=== PATIENT | female | born 1955 | race Caucasian/White ===

== ENCOUNTER 2021-04-10 02:35 | Inpatient (IN) | payer MEDICARE, OTHER ==
[~2021-04-10] VITALS: Ht 170.2 cm; Wt 39.8 kg
[2021-04-10] MEDS ORDERED: LEVOTHYROXINE25 MC1 (03:05)
[2021-04-10] MEDS ORDERED: SERTRALINE HCL1 GM (03:07)
[2021-04-10] MEDS ORDERED: DEPAKOTE125 MG (03:07)
[2021-04-10] MEDS ORDERED: ANORO ELLIPTA1 EACH INH (03:09)
[2021-04-10] MEDS ORDERED: HYDROXYZINE PA100 MG PO (03:09)
[2021-04-10] MEDS ORDERED: SUMATRIPTAN SUC50 MG PO (03:11)
[2021-04-10] MEDS ORDERED: ABILIFY20 MG PO (03:12)
--- NOTE | 2021-04-10 07:10 | NUR ---
PT ARRIVED TO CCU AROUND 0610 AWAKE AND ALERT ON 10L OXYMASK WITH AT SIDE. PT ASSISTED OVER ONTO THE BED PT STATED SHE WAS TO WEAK TO MOVE OVER ON HER OWN. PT MOVED OVER, VITALS TAKEN AT THIS TIME. PT STATED SHE WAS FEELING WARM, AXILLARY TEMP NOTED TO BE 100.0. HR IN THE 130'S. DR. PÉREZ IN TO ASSESS PT AT THIS TIME. VERBAL ORDERS GIVEN TO ADMINISTER 5MG LOPRESSOR OVER 2 MINUTES. LOPRESSOR ADMINISTERED AT 0624. PT VITALS THEN RETAKEN. ABG DRAWN BY DR. PÉREZ AT THIS TIME. ORDERED IVF AND IV ABX STARTED AT THIS TIME AT ORDERED RATES. PT REPORTS NO FURTHER NEEDS AT THIS TIME AND WAS PROVIDED WITH ICE CHIPS FOR COMFORT. RT NOW IN ROOM ASSISTING IN PLACING BIPAP ON PT. WILL CONTINUE PLAN OF CARE. AT BEDSIDE, RT IN ROOM, IVF INFUSING ORDERED, PT BEING PLACED ON BIPAP. WILL CONTINUE PLAN OF CARE AND GIVE REPORT TO THE DAYSHIFT RNS
--- NOTE | 2021-04-10 08:56 | NUR ---
pt not able to swallow tylenol, but is able to take 325 ASA pill. pt takes a few sips of water. placed on oxymask at 15 L flow when off bipap, sats remain 85-89% with this support. pt then back on bipap. total time off bipap less then 10 minutes. pt is alert and oriented x4, cooperative. she denies chest pain, but reports discomfort with breathing effort. pt denies nausea at this time.
--- NOTE | 2021-04-10 15:11 | NUR ---
1200- pt intubated 21 @ teeth 7.0 Ett. PT EET SECURED WITH BITE BOLOCK IN PLACE CENTER OF THE MOUTH, SUCTION IN LINE . SUCTIONED PATIENT NO SECRETIONS. PT BASELINE OXYGEN LEVEL LOW WELL LOW BP AND , HAVING A HARD TIEM GETTING SATURATION READINGS ON THE PATIENT. 1350 INCREASED PEEP USING LOW PEEP SCALED TO 18 TO OPTIMIZE SATURATIONS , PT IS UNSTABLE. DOCTOR AT WORKING ON BLOOD PRESSURE. PT GETTING MORE SEDATION ENDTIDAL READING 35 AT THIS TIME. PLAT PRESSURE IS 29 WANT TO KEEP BELOW 30 FOR PROTECTIVE LUNG STRATAGY. 1400 DOCTOR WOULD LIKE AN ABG HOWEVER PALPATION OF PULSE BILATERALLY IS SPOTTY. ABG OBTAINED BY DR PÉREZ FEMORALLY AFTER UNSUCESSFUL AFTER ATTEMPS BOTH RADIAL AND BRACHIAL ARTERY. 1415 DROPPED PEEP LEVEL TO 16 , PLAUTEUA PRESURE WAS OVER 30 NOW AT 28. THIS CHANGE WAS SATIFACTORY TO THE DOCTOR.
--- NOTE | 2021-04-10 17:35 | NUR ---
1140 - DECISION MADE BY TO INTUBATE PT. 1200 - DEEP PARKINSON FROM RT, , KIZZY RN, JORGE RN AT BEDSIDE. 30 MG ATOMADATE AND 120 MG SUCCS GIVEN TO INTUBATE. SIZE 7 TUBE PLACED 21 AT THE TEETH. 1210 - X-RAY DONE TO VERIFY TUBE PLACEMENT 1215 - 1 MG PHENELEPHRINE GIVEN DUE TO LOW BP OF 109/82, PROPOFOL DRIP STARTED AT 5 MCG/KG/MIN. PHENELPH DRIP STARTED AT 45 MCG/MIN 1217 - PLACED A TRIPLE LUMIN CENTRAL LINE DUE TO POOR IV ACCESS. 1225 - MERI NEVAREZ ATTEMPTED AND FAILED TO PLACE AN ART LINE. 1225 - PHENELEPHRINE DRIP TO 50 MCG/MIN, PROPOFOL INCREASE TO 10 MCG/KG/MIN 1240 - TEMP PROBE MONTGOMERY REPLACED A REGULAR MONTGOMERY CATH. PT CORE TEMP FOUND TO BE 95.4. GYAMAR HEATING PAD APPLIED TO PT. ORDERS CORE TEMP GOAL TO 100.4. 1300 - PHENELEPHRINE TITRATED TO 45 MCG/MIN 1307 - PHENELEP TO 50 MCG/MIN, PEEP TO 10 1320 - PHENELEPH TO 60 MCG/MIN 1320 - LR BOLUS STARTED 1000ML, AND 100 MG IV SOLUCORTEF IV GIVEN. 1330 - PHENELEPH TO 70 MCG/MIN 1335 - PHENELEPHRINE DRIP INCREASED TO 100 MCG/MIN 1337 - PEEP INCREASED TO 18 1339 - PHENELEPHINRE TITRATED TO 150 MCG/MIN 1340 - NOREPI STARTED AT 10 MCG/MIN 1343 - NOREPI UP TO 15 MCG/MIN, PEHELEPHRINE DECREASED TO 125 MCG/MIN 1345 - PHENELPH DECREASED TO 100 MCG/MIN 1348 - PHENELPH DECREASED TO 75 MCG/MIN 1351 - PHENELPH DECREASED TO 50 MCG/MIN 1354 - PHENELPH DECREASED TO 25 MCG/MIN 1356 - FENTANYL 25 MCG IV PUSH GIVEN FOR PT DISCOMFORT AND TUBE TOLERANCE. 1358 - PHENLPH OFF 1403 - NOREPI UP TO 18 MCG/MIN 1409 - NOREPI UP TO 22 MCG/MIN 1411 - LR BOLUS 1000 MG STARTED, 25 MCG IV FENTANYL PUSH GIVEN, KETAMINE 25 MG IV PUSH GIVEN FOR TUBE TOLERANCE 1412 - NOREPI UP TO 25 MCG/MIN, BP IS 89/55 1415 - PEEP CHANGED TO 16 1424 - 3 ATTEMPTS AT ABG 1444 - FEMORAL ABG SAMPLE OBTAINED AND SENT TO LAB 1500 - NOREPI 27 MCG/MIN FOR BP OF 90/75 1506 - NOREPI 29 MCG/MIN FOR BP OF 87/68, D5LR STARTED A 300 ML/HR 1509 - NOREPI DRIP AT 31 MCG/MIN FOR BP OF 87/69 1516 - LR BOLUS OF 500 ML STARTED 1521 - DOPAMINE STARTED AT 2.5 MCG/KG/MIN 1543 - KETAMINE 25 MG IV PUSH 1600 - DOPAMINE TITRATED TO 5 MCG/KG/MIN 1635 - KETAMINE 40 MG IV PUSH 1700 - DOPAMINE UP TO 7 MCG/KG/MIN 1710 - NOREPI TO 33 MCG/MIN AND DOPAMINE TO 12 MCG/KG/MIN 1715 - NOREPI TO 35 MCG/MIN AND DOPAMINE TO 17 MCG/KG/MIN, LR BOLUS OF 1000 MG STARTED. 1725 - NOREPI TO 37 MCG/MIN AND DOPAMINE TO 22 MCG/KG/MIN 1800 - EPINEPHERINE DRIP STARTED AT 2 MCG/MIN 1805 - EPINEPHERINE TO 3 MCG/MIN, NOREPI TO 39 MCG/KG/MIN 1820 - EPI TO 4 MCG/MIN, NOREPI TO 40 MCG/KG/MIN 1444 -
--- NOTE | 2021-04-10 17:40 | NUR ---
CALL PLACED TO DR FREEMAN REGARDING PTS HEART RATE AND BLOOD PRESSURE. ORDER FOR 3RD VASOPRESSOR TO START AND 12 LEAD EKG.
--- NOTE | 2021-04-10 18:47 | NUR ---
FULL COMMUNICATION WITH FAMILY THROUGH OUT THE DAY. ALL QUESTIONS ANSWERED. PT CONTINUES TO DECOMPENSATE PLAN OF CARE IS OPENLY DISCUSSED. PT'S DAUGHTER, ELIA DENNEY AT [phone], HAS BEEN INCLUDED IN ALL PERTINANT DISCUSSIONS.
--- NOTE | 2021-04-10 19:26 | NUR ---
MULTIPLE STAFF IN THE PT ROOM ALL SHIFT, TITRATING MEDICATIONS, AND VERBAL BEDSIDE ORDERS.
--- NOTE | 2021-04-10 19:30 | NUR ---
REPORT RECIEVED, CARE OF PATIENT ASSUMED AT THIS TIME. PT OXYGEN SATURATIONS 83 PERCENT ON VENTILATOR. HEART RATE 100-110. BLOOD PRESSURE SYSTOLICALLY IN THE 80S. FRIEND IN ROOM AT THIS TIME. THIS RN AT BEDSIDE.
--- NOTE | 2021-04-10 19:55 | NUR ---
pt blood pressure 61/45 (52). iv fluid bolus completed. Epinephrine titrated up to 5 mcg/min. Unable to palpate pulses in distal extremieites Dr. Bear called at this time and updated on assessment findings and current blood pressure. plan to continue to increase epi at this time.
--- NOTE | 2021-04-10 20:15 | NUR ---
PT HEART RATE DOWN INTO THE 70S ON THE EDUCATION TRAINER. BLOOD PRESSURES CONTINUE TO RAPIDLY DECREASE. EPI CONTINUES TO BE TITRATED UP. AT 7 MCG/MIN AT THIS TIME. NOREPINEPHRINE AT 40 MCG/MIN, DOPAMINE AT 22. PT COLOR IS SEAY, FEET ARE BLUE. NO DISTAL PULSES NOT PALPABLE. FRIEND YURIDIA AT BEDSIDE. GRAND DAUGHTER CALLED, UPDATED BY PHONE. DR FREEMAN UPDATED AND ON HIS WAY AT THIS TIME.
--- NOTE | 2021-04-10 20:16 | NUR ---
PT SPO2 READING 64 PERCENT. BLOOD PRESSURE 49/38 (44). APICAL PULSE OF 88 AUSCULTATED. NO OTHER PULSES PALPABLE. EPINEPHRINE TITRATED UP TO 6 MCG/MIN. SPO2 NOT ACCURATELY READING. SATURATIONS BETWEEN 76-85 PERCENT PER THE MONITOR.
--- NOTE | 2021-04-10 20:20 | NUR ---
PT HAS NO PULSE, OR BLOOD PRESSURE. DR FREEMAN AT BEDSIDE TO CONFIRM PT'S . HANDLE FINISHER IN UNIT. SPIRITUAL CARE AT BEDSIDE WITH FRIEND YURIDIA. DR FREEMAN ON PHONE WITH PT'S DAUGHTER ROSE.
--- NOTE | 2021-04-10 21:04 | NUR ---
ALL IV LINES AND TUBES REMOVED AT THIS TIME. DONOR LINE CONTACTED BY ROSELINE CONLEY. SPIRITUAL CARE SPOKE WITH DAUGHTER ON PHONE AND ALSO SPOKE WITH PTS FRIEND ALMA ROSA.
--- NOTE | 2021-04-10 21:23 | NUR ---
PLACED CALL TO DONOR LINE. ALL PAPER WORK FAXED PER DONOR AGENCY REQUEST.
--- NOTE | 2021-04-10 21:42 | NUR ---
Entered room as patient was passing. Said prayer of commital for the and comfort for the greiving. Rosa Goodrich was at bedside and indicated intent to remain until home arrived. Spoke with daughter Michele on phone. She was understandably distraught. We talked until she was able to calm down. Daughter indicated she was on the way to the airport to [place] her way here. Indicated no home preference. Will call according to rotation.
--- NOTE | 2021-04-10 23:27 | NUR ---
Donor line released patient, pt transported to [facility] at this time.
--- NOTE | 2021-04-11 06:45 | OR ---
[facility] [address] [place], [place] [address] Signed DATE OF OPERATION: 04/10/2021 SURGEON: Flakito Anaya MD PREOPERATIVE DIAGNOSES: 1. Pneumonia. 2. Sepsis. PROCEDURE: Placement of right femoral vein triple-lumen catheter. ESTIMATED BLOOD LOSS: Minimal. INDICATIONS: Florecita is a 65-year-old female, who is apparently from the [facility]. She and her family were traveling to our area. She is known to have severe COPD and only weighs 40 kg. She had been admitted to our Internal Medicine Service with pneumonia. She was treated with antibiotics and developed progressive sepsis and respiratory failure. She has now been intubated by our anesthesia service. I have been asked to see her emergently to place a central venous catheter. The Internal Medicine Service is making arrangements for her to be transferred to a higher level of care. She is now intubated on a propofol drip and her is not here presently. Consequently, we proceeded with placement of central venous catheter under her current conditions. PROCEDURE NOTE: Florecita was kept supine in the ICU bed. Her right groin had been prepped and draped in the usual sterile fashion. One could easily feel the femoral pulse. With the 1st pass of the needle, we were able to enter the femoral vein and insert the wire without any resistance whatsoever. The track was dilated without resistance. The triple-lumen catheter was then inserted over the wire without resistance whatsoever. All three tracts were able to draw and flush quite readily. After this, the catheter was held in place with interrupted silk sutures. Dry plastic occlusive dressing was applied per our nursing staff. Florecita tolerated the procedure well. Flakito Anaya MD Electronically Signed By: FLAKITO ANAYA MD 04/11/21 0645 PATIENT NAME: FLORECITA LANDA OPERATIVE REPORT DATE OF : 59 REPORT #: [id number] PHYSICIAN: FLAKITO ANAYA MD PCP: NO PRIMARY CARE PHYSICIAN REPORT IS CONFIDENTIAL AND NOT TO BE RELEASED WITHOUT AUTHORIZATION [address] [address] Signed [facility] /[id number] cc: Flakito Anaya MD Copies: FLAKITO ANAYA MD ~ Electronically Signed By: FLAKITO ANAYA MD 04/11/21 0645 PATIENT NAME: FLORECITA LANDA OPERATIVE REPORT DATE OF : 59 REPORT #: [id number] PHYSICIAN: FLAKITO ANAYA MD PCP: NO PRIMARY CARE PHYSICIAN REPORT IS CONFIDENTIAL AND NOT TO BE RELEASED WITHOUT AUTHORIZATION
--- NOTE | 2021-04-11 14:03 | EKG ---
[facility] [address] [facility] [place], [place] [address] Signed Atrial flutter with 2:1 AV conduction Low voltage QRS Inferior infarct , age undetermined Anterolateral infarct , age undetermined Abnormal ECG No previous ECGs available Confirmed by DARIAN FREEMAN DO ([id number]) on 04/11/2021 2:03:04 PM Electronically Signed By: DARIAN FREEMAN DO 04/11/21 1403 PATIENT NAME: SHANI LANDA Electrocardiogram DATE OF : 59 PHYSICIAN: DARIAN FREEMAN DO REPORT #: [id number] REPORT IS CONFIDENTIAL AND NOT TO BE RELEASED WITHOUT AUTHORIZATION
--- NOTE | 2021-04-11 14:07 | EKG ---
[facility] [address] [facility] [place] [address] Signed Normal sinus rhythm with sinus arrhythmia Left anterior fascicular block Anterolateral infarct (cited on or before 10-APR-2021) Abnormal ECG When compared with ECG of 10-APR-2021 03:10, (Unconfirmed) Sinus rhythm has replaced Atrial flutter Left anterior fascicular block is now present ST no longer depressed in Inferior leads Nonspecific T wave abnormality no longer evident in Anterior leads Confirmed by DARIAN FREEMAN DO ([id number]) on 04/11/2021 2:07:15 PM Electronically Signed By: DARIAN FREEMAN DO 04/11/21 1407 PATIENT NAME: SHANI LANDA Electrocardiogram DATE OF : 59 PHYSICIAN: DARIAN FREEMAN DO REPORT #: [id number] REPORT IS CONFIDENTIAL AND NOT TO BE RELEASED WITHOUT AUTHORIZATION
== END 2021-04-10 23:30 | DRG 871 ==
LOC: ED 02:35 → CCU 02:38 → ED 02:38 → CCU 02:38
PROVIDERS: ADMIT Internal Medicine; ATTEND Internal Medicine
PROC: 5A09357 Assistance with Respiratory Ventilation, Less than 24 Consecutive Hours, Continuous Positive Airway Pressure (ICD-10-PCS; principal; 2021-04-10)
PROC: 3E043XZ Introduction of Vasopressor into Central Vein, Percutaneous Approach (ICD-10-PCS; 2021-04-10)
PROC: 06HY33Z Insertion of Infusion Device into Lower Vein, Percutaneous Approach (ICD-10-PCS; 2021-04-10)
PROC: 0BH17EZ Insertion of Endotracheal Airway into Trachea, Via Natural or Artificial Opening (ICD-10-PCS; 2021-04-10)
PROC: 5A1935Z Respiratory Ventilation, Less than 24 Consecutive Hours (ICD-10-PCS; 2021-04-10)
DX: A41.9 Sepsis, unspecified organism (principal); J18.9 Pneumonia, unspecified organism; R65.21 Severe sepsis with septic shock; J96.01 Acute respiratory failure with hypoxia; J96.02 Acute respiratory failure with hypercapnia; E87.1 Hypo-osmolality and hyponatremia; J44.0 Chronic obstructive pulmonary disease with (acute) lower respiratory infection; Z51.5 Encounter for palliative care; Z20.822 Contact with and (suspected) exposure to COVID-19; I48.0 Paroxysmal atrial fibrillation; E87.6 Hypokalemia; E03.9 Hypothyroidism, unspecified; F31.9 Bipolar disorder, unspecified; F43.10 Post-traumatic stress disorder, unspecified; F17.200 Nicotine dependence, unspecified, uncomplicated; Z66 Do not resuscitate; Z79.01 Long term (current) use of anticoagulants
CPT/HCPCS: 31500; 36600; 71045; 80053; 81001; 82803; 83605; 83735; 84484; 85007; 85025; 93005; 93010; 94002; 94640; 94660; 96374; 96375; 99285-25; G0480; J0171; J0692; J0696; J1160; J1650; J1720; J1956; J2270; J2405; J2704; J3010; J3480; J7030; J7060; J7121; U0003